=== PATIENT | female | born 1980 | race Caucasian/White ===

== ENCOUNTER → 2017-01-05 09:34 | Outpatient (CLI) | payer BC ==
[2014-10-01 08:57] VITALS: BMI 26.4
[~2017-01-05 09:34] MED LIST: ASPIRIN81 MG PO; BYSTOLIC5 MG PO; CLEOCIN HCL150 MG PO; CLEOCIN PREMIX900 MG IV; COLACE100 MG PO; HYDROCODONE-APA1 TAB PO; KLONOPIN1 MG PO; LIDODERM 5 %1 PATCH TRANSDERM; PERCOCET 10/3251 TA1 PO; PROAIR HFA8.5 GM INH
== END | disposition home or self-care (01) ==
LOC: D.US 09:30
DX: M79.605 Pain in left leg (principal)